=== PATIENT | female | born 1960 | race Caucasian/White ===

== ENCOUNTER 2022-04-10 04:36 | Day surgery (SDC) | payer OTHER ==
[2022-04-09 12:55] VITALS: BMI 24.2
[2022-04-10] MEDS ORDERED: MIDAZOLAM HCL 2 MG/2 ML SINGLE DOSE VIAL ONE (13:12)
[2022-04-10] MEDS ORDERED: ACETAMINOPHEN 325 MG TABLET (FP) PO PRN (13:59)
[2022-04-10] MEDS ORDERED: IBUPROFEN 400 MG TABLET (FP) PO PRN (13:59)
[2022-04-10] MEDS ORDERED: ONDANSETRON 4 MG/2 ML VIAL IVPUSH PRN (14:08)
[2022-04-10] MEDS ORDERED: oxyCODONE HCL 5 MG TABLET PO PRN (14:08)
[2022-04-10] MEDS ORDERED: PROMETHAZINE HCL 25 MG/1 ML VIAL IVPUSH PRN (14:08)
[2022-04-10] MEDS ORDERED: LACTATED RINGERS SOLUTION 1,000 ML IV SCH (14:15)
[2022-04-10 16:14] VITALS: BP 152/80; PULSE 69; TEMP 98.2
== END 2022-04-10 16:55 | disposition home or self-care (01) ==
LOC: JASU-SURG 04:36
PROVIDERS: ATTEND Specialist
PROC: 0UB98ZX Excision of Uterus, Via Natural or Artificial Opening Endoscopic, Diagnostic (ICD-10-PCS; principal; 2022-04-10 13:00)
PROC: 0UDB7ZX Extraction of Endometrium, Via Natural or Artificial Opening, Diagnostic (ICD-10-PCS; 2022-04-10 13:00)
DX: N84.1 Polyp of cervix uteri (principal); D25.0 Submucous leiomyoma of uterus
CPT/HCPCS: 88305-TC; 94760